=== PATIENT | male | born 1945 | race Caucasian/White ===

== ENCOUNTER 2017-05-14 02:52 | Inpatient (IN) | payer OTHER, BC ==
[~2017-05-14] VITALS: Ht 188 cm; Wt 92.2 kg
[~2017-05-14 02:52] MED LIST: ASPIRIN325 MG PO; CIALIS5 MG PO; DEXILANT60 MG; DEXILANT60 MG PO; DOXYCYCLINE HY100 MG PO; LIPITOR40 MG PO; LISINOPRIL10 MG PO; METOPROLOL TART25 MG PO; PLAVIX75 MG PO; XARELTO20 MG PO
[2017-05-14 03:58] LABS: HEMATOCRIT 38.2 % (38.0-50.0); MCH 29.4 PG (29.0-34.0); MCHC 34.3 G/DL (30.0-36.0); MCV 85.7 FL (86-99); MEAN PLAT.VOLUME 10.9 uM^3 (9.0-12.4); PLATELET COUNT 137 K/uL (156-360); RBC DIS.WIDTH-CV 13.1 % (11.8-14.6); RBC DIS.WIDTH-SD 40.7 % (39-53); RED BLOOD COUNT 4.46 M/uL (4.00-5.50); WHITE BLOOD COUNT 9.9 K/uL (4.1-10.2)
[2017-05-14 04:04] LABS: INTER. NORMALIZED RATIO 1.6; PROTHROMBIN TIME 17.6 SEC (10.2-12.9)
[2017-05-14 04:06] LABS: D-DIMER ELISA < 150.00 ng/mLDDU (<230)
[2017-05-14 04:07] LABS: PTT 37.6 SEC (25-37)
[2017-05-14 04:09] LABS: CHLORIDE 107 mEq/L (99-109); POTASSIUM 4.1 mEq/L (3.7-5.4); SODIUM 141 mEq/L (136-147)
[2017-05-14 04:11] LABS: GLUCOSE 127 mg/dL (70-99)
[2017-05-14 04:12] LABS: ANION GAP 11 MEQ/L (2-14)
[2017-05-14 04:13] LABS: TOTAL BILIRUBIN 1.1 mg/dL (0.0-1.0)
[2017-05-14 04:15] LABS: ALKALINE PHOSPHATASE 106 IU/L (3-129); GFR ESTIMATE (CALCULATED) 40 mL/min/
[2017-05-14 04:16] LABS: UREA NITROGEN (BUN) 19 mg/dL (9-23)
[2017-05-14 04:18] LABS: LIPASE 32 U/L (1.0-51.0)
[2017-05-14 04:19] LABS: TROP-I INTERPRETATION NEGATIVE; TROPONIN-I 0.01 ng/mL (0.0-0.30)
[2017-05-14 08:10] VITALS: BP 172/91
[2017-05-14 12:00] VITALS: BP 160/86
[2017-05-14 15:25] VITALS: BP 136/81
[2017-05-14] MEDS ORDERED: 24 HOUR ALLER15.8 ML BOTH NARES (16:19)
[2017-05-14] MEDS ORDERED: MELATONIN5 M1 PO (16:20)
[2017-05-14] MEDS ORDERED: AZELASTINE137 MCG/0. BOTH NARES (16:20)
[2017-05-14 19:15] VITALS: BP 140/79
[2017-05-15] VITALS (7 sets, daily range): BP systolic 135–148; BP diastolic 70–90
[2017-05-15 06:23] LABS: EOSINOPHIL (%) 3.1 % (0-5); EOSINOPHIL COUNT 0.3 K/uL (0-0.3); HEMATOCRIT 35.4 % (38.0-50.0); IMMATURE GRANULOCYTE (%) 0.8 % (0.0-0.7); IMMATURE GRANULOCYTE COUNT 0.1 K/uL; INSTRUMENT ABS NEUTROPHIL CT 6.2 K/uL; LYMPHOCYTE COUNT 1.3 K/uL (1.0-2.8); MCH 29.9 PG (29.0-34.0); MCHC 34.5 G/DL (30.0-36.0); MCV 86.8 FL (86-99); MEAN PLAT.VOLUME 11.1 uM^3 (9.0-12.4); MONOCYTE (%) 6.3 % (3-12); MONOCYTE COUNT 0.5 K/uL (0-0.8); NEUTROPHIL COUNT 6.2 K/uL (1.8-6.4); PLATELET COUNT 107 K/uL (156-360); RBC DIS.WIDTH-CV 13.2 % (11.8-14.6); RBC DIS.WIDTH-SD 41.2 % (39-53); RED BLOOD COUNT 4.08 M/uL (4.00-5.50); WHITE BLOOD COUNT 8.4 K/uL (4.1-10.2)
[2017-05-15 06:54] LABS: ALKALINE PHOSPHATASE 93 IU/L (3-129); ANION GAP 11 MEQ/L (2-14); CHLORIDE 106 MEQ/L (99-109); GAMMA-GT 91 IU/L (4-73); GFR ESTIMATE (CALCULATED) 58 mL/min/; GLUCOSE 96 mg/dL (70-99); SAMPLE HEMOLYSIS CHECK 0; SAMPLE ICTERIC CHECK 0; SAMPLE LIPEMIA CHECK 0; SODIUM 139 MEQ/L (136-147); TOTAL BILIRUBIN 1.9 MG/DL (0.0-1.0); UREA NITROGEN (BUN) 16 mg/dL (9-23)
[2017-05-16 03:56] VITALS: BP 144/77
[2017-05-16 07:22] LABS: EOSINOPHIL (%) 1.8 % (0-5); EOSINOPHIL COUNT 0.2 K/uL (0-0.3); HEMATOCRIT 38.7 % (38.0-50.0); IMMATURE GRANULOCYTE (%) 0.8 % (0.0-0.7); IMMATURE GRANULOCYTE COUNT 0.1 K/uL; INSTRUMENT ABS NEUTROPHIL CT 8.8 K/uL; LYMPHOCYTE COUNT 0.8 K/uL (1.0-2.8); MCH 28.8 PG (29.0-34.0); MCHC 33.9 G/DL (30.0-36.0); MCV 85.1 FL (86-99); MONOCYTE (%) 5.4 % (3-12); MONOCYTE COUNT 0.6 K/uL (0-0.8); NEUTROPHIL (%) 84.2 % (45-76); NEUTROPHIL COUNT 8.8 K/uL (1.8-6.4); PLATELET COUNT 134 K/uL (156-360); RBC DIS.WIDTH-CV 12.5 % (11.8-14.6); RBC DIS.WIDTH-SD 38.5 % (39-53); RED BLOOD COUNT 4.55 M/uL (4.00-5.50); WHITE BLOOD COUNT 10.5 K/uL (4.1-10.2)
[2017-05-16 07:40] VITALS: BP 160/89
[2017-05-16 07:49] LABS: ANION GAP 13 MEQ/L (2-14); CHLORIDE 102 MEQ/L (99-109); GFR ESTIMATE (CALCULATED) 58 mL/min/; GLUCOSE 92 mg/dL (70-99); POTASSIUM 3.9 MEQ/L (3.7-5.4); SAMPLE HEMOLYSIS CHECK 0; SAMPLE ICTERIC CHECK 0; SAMPLE LIPEMIA CHECK 0; SODIUM 137 MEQ/L (136-147); UREA NITROGEN (BUN) 16 mg/dL (9-23)
[2017-05-16 11:17] VITALS: BP 183/97
[2017-05-16 18:17] VITALS: BP 136/100
[2017-05-16 20:00] VITALS: BP 135/88
[2017-05-16 23:28] VITALS: BP 154/78; BP 177/123
[2017-05-17 03:28] VITALS: BP 166/93
[2017-05-17 07:06] LABS: HEMATOCRIT 37.8 % (38.0-50.0); MCH 28.8 PG (29.0-34.0); MCHC 34.1 G/DL (30.0-36.0); MCV 84.4 FL (86-99); RBC DIS.WIDTH-CV 12.7 % (11.8-14.6); RBC DIS.WIDTH-SD 38.9 % (39-53); RED BLOOD COUNT 4.48 M/uL (4.00-5.50); WHITE BLOOD COUNT 18.3 K/uL (4.1-10.2)
[2017-05-17 07:25] VITALS: BP 143/89
[2017-05-17 07:34] LABS: ANION GAP 12 MEQ/L (2-14); CHLORIDE 100 MEQ/L (99-109); GFR ESTIMATE (CALCULATED) 58 mL/min/; POTASSIUM 3.9 MEQ/L (3.7-5.4); SAMPLE HEMOLYSIS CHECK 0; SAMPLE ICTERIC CHECK 0; SAMPLE LIPEMIA CHECK 0; SODIUM 136 MEQ/L (136-147); UREA NITROGEN (BUN) 20 mg/dL (9-23)
[2017-05-17 07:41] LABS: GLUCOSE 145 mg/dL (70-99)
[2017-05-17 07:42] LABS: ALKALINE PHOSPHATASE 120 IU/L (3-129); TOTAL BILIRUBIN 1.3 MG/DL (0.0-1.0)
[2017-05-17 07:56] LABS: MEAN PLAT.VOLUME 11.2 uM^3 (9.0-12.4); PLATELET COUNT 158 K/uL (156-360)
[2017-05-17 11:28] VITALS: BP 179/98
[2017-05-17 13:06] LABS: TROP-I INTERPRETATION NEGATIVE; TROPONIN-I 0.03 ng/mL (0.0-0.30)
[2017-05-17 16:21] VITALS: BP 167/93
[2017-05-17 19:29] VITALS: BP 145/84
[2017-05-17 20:43] LABS: TROP-I INTERPRETATION NEGATIVE; TROPONIN-I 0.03 ng/mL (0.0-0.30)
[2017-05-17 23:25] VITALS: BP 134/96
[2017-05-18 03:15] VITALS: BP 123/83
[2017-05-18 04:40] LABS: CHLORIDE 100 mEq/L (99-109); POTASSIUM 4.5 mEq/L (3.7-5.4); SODIUM 134 mEq/L (136-147)
[2017-05-18 04:42] LABS: GLUCOSE 117 mg/dL (70-99)
[2017-05-18 04:43] LABS: ANION GAP 8 MEQ/L (2-14)
[2017-05-18 04:46] LABS: GFR ESTIMATE (CALCULATED) 58 mL/min/; UREA NITROGEN (BUN) 16 mg/dL (9-23)
[2017-05-18 04:50] LABS: TROP-I INTERPRETATION NEGATIVE; TROPONIN-I 0.03 ng/mL (0.0-0.30)
[2017-05-18 04:52] LABS: EOSINOPHIL (%) 1.6 % (0-5); EOSINOPHIL COUNT 0.2 K/uL (0-0.3); HEMATOCRIT 33.3 % (38.0-50.0); IMMATURE GRANULOCYTE (%) 0.7 % (0.0-0.7); IMMATURE GRANULOCYTE COUNT 0.1 K/uL; INSTRUMENT ABS NEUTROPHIL CT 11.8 K/uL; MCH 29.2 PG (29.0-34.0); MCHC 34.2 G/DL (30.0-36.0); MCV 85.4 FL (86-99); MEAN PLAT.VOLUME 11.3 uM^3 (9.0-12.4); MONOCYTE (%) 6.3 % (3-12); MONOCYTE COUNT 0.9 K/uL (0-0.8); NEUTROPHIL (%) 84.5 % (45-76); NEUTROPHIL COUNT 11.8 K/uL (1.8-6.4); PLATELET COUNT 143 K/uL (156-360); RBC DIS.WIDTH-SD 40.4 % (39-53)
[2017-05-18 07:55] VITALS: BP 153/88
[2017-05-18 11:50] VITALS: BP 133/60
[2017-05-18 15:37] VITALS: BP 126/64
[2017-05-18 19:43] VITALS: BP 142/72
[2017-05-18 23:42] VITALS: BP 130/80
[2017-05-19] VITALS (20 sets, daily range): BP systolic 108–159; BP diastolic 69–85
[2017-05-19 08:43] LABS: MCH 29.5 PG (29.0-34.0); MCHC 34.1 G/DL (30.0-36.0); MCV 86.5 FL (86-99); PLATELET COUNT 170 K/uL (156-360); RBC DIS.WIDTH-CV 13.2 % (11.8-14.6); RBC DIS.WIDTH-SD 41.2 % (39-53); RED BLOOD COUNT 4.51 M/uL (4.00-5.50); WHITE BLOOD COUNT 15.8 K/uL (4.1-10.2)
[2017-05-19 09:14] LABS: ANION GAP 11 MEQ/L (2-14); CHLORIDE 99 MEQ/L (99-109); GFR ESTIMATE (CALCULATED) 53 mL/min/; GLUCOSE 108 mg/dL (70-99); POTASSIUM 3.8 MEQ/L (3.7-5.4); SAMPLE HEMOLYSIS CHECK 0; SAMPLE ICTERIC CHECK 0; SAMPLE LIPEMIA CHECK 0; SODIUM 137 MEQ/L (136-147); UREA NITROGEN (BUN) 17 mg/dL (9-23)
[2017-05-20 04:37] VITALS: BP 126/71
[2017-05-20 05:17] LABS: EOSINOPHIL (%) 2.6 % (0-5); EOSINOPHIL COUNT 0.4 K/uL (0-0.3); HEMATOCRIT 35.6 % (38.0-50.0); IMMATURE GRANULOCYTE COUNT 0.2 K/uL; LYMPHOCYTE COUNT 1.5 K/uL (1.0-2.8); MCH 28.8 PG (29.0-34.0); MCHC 33.7 G/DL (30.0-36.0); MCV 85.4 FL (86-99); MEAN PLAT.VOLUME 10.7 uM^3 (9.0-12.4); MONOCYTE (%) 5.9 % (3-12); MONOCYTE COUNT 0.9 K/uL (0-0.8); NEUTROPHIL (%) 80.3 % (45-76); PLATELET COUNT 210 K/uL (156-360); RBC DIS.WIDTH-SD 40.5 % (39-53); RED BLOOD COUNT 4.17 M/uL (4.00-5.50); WHITE BLOOD COUNT 14.9 K/uL (4.1-10.2)
[2017-05-20 05:41] LABS: ANION GAP 10 MEQ/L (2-14); CHLORIDE 102 MEQ/L (99-109); GFR ESTIMATE (CALCULATED) > 59 mL/min/; GLUCOSE 102 mg/dL (70-99); POTASSIUM 3.6 MEQ/L (3.7-5.4); SAMPLE HEMOLYSIS CHECK 0; SAMPLE ICTERIC CHECK 0; SAMPLE LIPEMIA CHECK 0; SODIUM 137 MEQ/L (136-147); UREA NITROGEN (BUN) 19 mg/dL (9-23)
[2017-05-20 05:45] LABS: ANION GAP 10 MEQ/L (2-14); CHLORIDE 102 MEQ/L (99-109); GFR ESTIMATE (CALCULATED) > 59 mL/min/; GLUCOSE 104 mg/dL (70-99); POTASSIUM 3.6 MEQ/L (3.7-5.4); SAMPLE HEMOLYSIS CHECK 0; SAMPLE ICTERIC CHECK 0; SAMPLE LIPEMIA CHECK 0; SODIUM 136 MEQ/L (136-147); TOTAL BILIRUBIN 1.1 MG/DL (0.0-1.0); UREA NITROGEN (BUN) 19 mg/dL (9-23)
[2017-05-20 05:51] LABS: ALKALINE PHOSPHATASE 73 IU/L (3-129)
[2017-05-20 07:23] VITALS: BP 130/64
[2017-05-20 11:15] VITALS: BP 135/72
[2017-05-20 17:00] VITALS: BP 136/74
[2017-05-20 21:30] VITALS: BP 148/69
[2017-05-21] VITALS (7 sets, daily range): BP systolic 129–175; BP diastolic 68–93
[2017-05-21 05:28] LABS: CHLORIDE 104 mEq/L (99-109); POTASSIUM 3.6 mEq/L (3.7-5.4); SODIUM 139 mEq/L (136-147)
[2017-05-21 05:30] LABS: GLUCOSE 88 mg/dL (70-99)
[2017-05-21 05:31] LABS: ANION GAP 12 MEQ/L (2-14)
[2017-05-21 05:33] LABS: GFR ESTIMATE (CALCULATED) > 59 mL/min/
[2017-05-21 05:34] LABS: HEMATOCRIT 32.9 % (38.0-50.0); MCH 28.7 PG (29.0-34.0); MCHC 33.4 G/DL (30.0-36.0); MCV 85.9 FL (86-99); MEAN PLAT.VOLUME 10.8 uM^3 (9.0-12.4); PLATELET COUNT 177 K/uL (156-360); RBC DIS.WIDTH-CV 12.7 % (11.8-14.6); RBC DIS.WIDTH-SD 39.9 % (39-53); RED BLOOD COUNT 3.83 M/uL (4.00-5.50); UREA NITROGEN (BUN) 17 mg/dL (9-23); WHITE BLOOD COUNT 9.3 K/uL (4.1-10.2)
[2017-05-22 04:14] VITALS: BP 144/69
[2017-05-22 07:20] VITALS: BP 143/91
[2017-05-22 07:59] LABS: EOSINOPHIL (%) 2.6 % (0-5); EOSINOPHIL COUNT 0.3 K/uL (0-0.3); HEMATOCRIT 33.3 % (38.0-50.0); IMMATURE GRANULOCYTE (%) 0.9 % (0.0-0.7); IMMATURE GRANULOCYTE COUNT 0.1 K/uL; INSTRUMENT ABS NEUTROPHIL CT 8.2 K/uL; LYMPHOCYTE COUNT 1.1 K/uL (1.0-2.8); MCHC 34.8 G/DL (30.0-36.0); MEAN PLAT.VOLUME 10.3 uM^3 (9.0-12.4); MONOCYTE (%) 7.1 % (3-12); MONOCYTE COUNT 0.7 K/uL (0-0.8); NEUTROPHIL COUNT 8.2 K/uL (1.8-6.4); PLATELET COUNT 199 K/uL (156-360); RBC DIS.WIDTH-CV 12.5 % (11.8-14.6); RBC DIS.WIDTH-SD 39.4 % (39-53); RED BLOOD COUNT 3.87 M/uL (4.00-5.50); WHITE BLOOD COUNT 10.4 K/uL (4.1-10.2)
[2017-05-22 08:33] LABS: ANION GAP 11 MEQ/L (2-14); CHLORIDE 103 MEQ/L (99-109); GFR ESTIMATE (CALCULATED) > 59 mL/min/; GLUCOSE 90 mg/dL (70-99); POTASSIUM 4.3 MEQ/L (3.7-5.4); SAMPLE HEMOLYSIS CHECK 0; SAMPLE ICTERIC CHECK 0; SAMPLE LIPEMIA CHECK 0; SODIUM 138 MEQ/L (136-147); UREA NITROGEN (BUN) 15 mg/dL (9-23)
[2017-05-22 12:00] VITALS: BP 119/86
[2017-05-22 16:58] VITALS: BP 135/73
[2017-05-22 19:30] VITALS: BP 130/73
[2017-05-22 23:26] VITALS: BP 133/76
[2017-05-23 03:41] VITALS: BP 133/82
[2017-05-23 07:07] VITALS: BP 134/71
[2017-05-23] MEDS ORDERED: REGLAN10 MG PO (10:40)
[2017-05-23] MEDS ORDERED: CARDIZEM CD120 M1 PO (10:43)
[2017-05-23] MEDS ORDERED: VENTOLIN HFA18 GM IH (10:44)
== END 2017-05-23 15:49 | disposition home or self-care (01) | DRG 418 ==
LOC: EME 02:52 → 4EAST 06:00 → EDOF 06:00 → 2EAST 06:00 → ENRESERV 06:33 → 2EAST 08:13 → ENRESERV 05-19 10:09 → 4EAST 05-19 11:26 → ENRESERV 05-22 06:59 → 3EAST 05-22 16:44
PROVIDERS: Emergency Medicine; Family Medicine; Thoracic Surgery (Cardiothoracic Vascular Surgery)
PROC: 0FT44ZZ Resection of Gallbladder, Percutaneous Endoscopic Approach (ICD-10-PCS; principal; 2017-05-16)
DX: K80.12 Calculus of gallbladder with acute and chronic cholecystitis without obstruction (principal); N17.9 Acute kidney failure, unspecified; K56.0 Paralytic ileus; I48.2 Chronic atrial fibrillation; J95.89 Other postprocedural complications and disorders of respiratory system, not elsewhere classified; R09.02 Hypoxemia; J98.11 Atelectasis; I12.9 Hypertensive chronic kidney disease with stage 1 through stage 4 chronic kidney disease, or unspecified chronic kidney disease; N18.9 Chronic kidney disease, unspecified; E78.5 Hyperlipidemia, unspecified; I25.119 Atherosclerotic heart disease of native coronary artery with unspecified angina pectoris; K22.719 Barrett's esophagus with dysplasia, unspecified; Z66 Do not resuscitate; I25.2 Old myocardial infarction; Z95.5 Presence of coronary angioplasty implant and graft; Z79.01 Long term (current) use of anticoagulants; Z79.02 Long term (current) use of antithrombotics/antiplatelets; Z87.891 Personal history of nicotine dependence; Z82.3 Family history of stroke
CPT/HCPCS: 71020; 74020; 74022; 74176; 76705; 78227; 80048; 80053; 82977; 83690; 84439; 84443; 84484; 85025; 85027; 85379; 85610; 85730; 87070; 87075; 87205; 88304; 93005; 93306; 94010; 94640; 94640 76; 94799; 99202; 99281; 99285; A9537; C9113; J0131; J0330; J0690; J0696; J1170; J1644; J2270; J2405; J2543; J2550; J2710; J2765; J2805; J3010; J7030; J7050; J7120

== ENCOUNTER → 2018-04-26 | Outpatient (CLI) | payer OTHER, BC ==
[~2018-04-26] VITALS: Ht 186.7 cm; Wt 93.0 kg
[~2018-04-26] MED LIST changes: +24 HOUR ALLER15.8 ML BOTH NARES; +AZELASTINE137 MCG/0. BOTH NARES; +CARDIZEM CD120 M1 PO; +MELATONIN5 M1 PO; +REGLAN10 MG PO; +VENTOLIN HFA18 GM IH
== END | disposition home or self-care (01) ==
LOC: AMB 11:45
DX: K22.70 Barrett's esophagus without dysplasia (principal); I25.10 Atherosclerotic heart disease of native coronary artery without angina pectoris; K57.30 Diverticulosis of large intestine without perforation or abscess without bleeding; K21.9 Gastro-esophageal reflux disease without esophagitis; Z79.82 Long term (current) use of aspirin; Z79.01 Long term (current) use of anticoagulants; Z79.02 Long term (current) use of antithrombotics/antiplatelets
CPT/HCPCS: 88305